=== PATIENT | male | born 1960 | race Caucasian/White ===

== ENCOUNTER → 2016-09-08 | Outpatient (REF) | payer BC ==
[~2016-09-08] MED LIST: BYST10TA2 PO; CIPR500T89 PO; CRES5TAB PO; FELO10TA PO; LOSA100T PO; PERC5TAB6 PO; PLENDIL PO
== END ==
LOC: M SFHCLERA 09:22
PROVIDERS: ATTEND Urology
DX: C61 Malignant neoplasm of prostate (principal)

== ENCOUNTER → 2016-12-17 | Outpatient (REF) | payer BC | LOC: M LABSMT 07:52 | PROVIDERS: ATTEND Nurse Practitioner Women's Health | DX: C61 Malignant neoplasm of prostate (principal) ==

== ENCOUNTER → 2017-06-24 | Outpatient (REF) | payer BC ==
[~2017-06-24] MED LIST changes: +CIPR-249 PO; -CIPR500T89 PO; +LABE20TAB PO; -LOSA100T PO; +LOSA100T8 PO; +PERC5TAB12 PO; -PERC5TAB6 PO; +VALS160T3 PO
== END ==
LOC: M SFHCLERA 11:23
PROVIDERS: ATTEND Urology
DX: C61 Malignant neoplasm of prostate (principal)

== ENCOUNTER → 2017-08-19 | Outpatient (REF) | payer BC ==
[2017-08-19 16:33] LABS: MEAN CORPUSCULAR HGB CONC 33.4 g/dl (32.0-36.5); MEAN CORPUSCULAR VOLUME 89.6 fl (80.0-96.0); PLATELET COUNT, AUTOMATED 309 10^3/uL (150-450); RED CELL DISTRIBUTION WIDTH 12.3 % (11.5-14.5); WHITE BLOOD COUNT 6.5 10^3/uL (4.0-10.0)
[2017-08-19 16:40] LABS: INR 1.02
[2017-08-19 17:24] LABS: ANION GAP 7 MEQ/L (8-16); BLOOD UREA NITROGEN 19 MG/DL (7-18); CALCIUM LEVEL 8.9 MG/DL (8.5-10.1); CARBON DIOXIDE LEVEL 30 MEQ/L (21-32); CHLORIDE LEVEL 102 MEQ/L (98-107); CREATININE FOR GFR 1.18 MG/DL (0.70-1.30); GLOMERULAR FILTRATION RATE > 60.0 (>56); GLUCOSE, FASTING 92 MG/DL (70-105); POTASSIUM SERUM 4.3 MEQ/L (3.5-5.1); SODIUM LEVEL 139 MEQ/L (136-145)
== END ==
LOC: M SFHCLERA 15:04
PROVIDERS: ATTEND Urology
DX: C61 Malignant neoplasm of prostate (principal); N52.01 Erectile dysfunction due to arterial insufficiency

== ENCOUNTER 2017-09-09 07:19 | Day surgery (SDC) | payer BC ==
[2017-09-09] MEDS ORDERED: LIDOCAINE 1% SDV 5 ML VIAL SQ (07:45)
[2017-09-09] MEDS: LR 1,000 ML IV ×2 (08:05→11:38)
[2017-09-09] MEDS: VANCOMYCIN HCL 1,000 MG, VIAL MATE ADAPTER 1 EACH in D5W 250 ML IV (08:08)
[2017-09-09] MEDS ORDERED: PROPOFOL 200 MG/20 ML VIAL As Ordered ×2 (08:37→09:45)
[2017-09-09] MEDS ORDERED: MIDAZOLAM INJ 2 MG/2 ML VIAL (J2250) As Ordered (08:37)
[2017-09-09] MEDS ORDERED: LIDOCAINE 2% INJ 100 MG/5 ML SDV (FOR ANES.) As Ordered (08:37)
[2017-09-09] MEDS ORDERED: fentaNYL 250 MCG/5 ML INJECTION (J3010) As Ordered (08:37)
[2017-09-09] MEDS ORDERED: BACTRIM 160MG/800MG DS TAB PO (09:00)
[2017-09-09] MEDS ORDERED: ROCURONIUM BROMIDE 50 MG/5 ML VIAL As Ordered (09:28)
[2017-09-09] MEDS ORDERED: SUCCINYLCHOLINE 100 MG/5 ML SYRINGE (J0330) As Ordered (09:28)
[2017-09-09] MEDS ORDERED: ePHEDrine SULFATE 25 MG/5 ML(5MG/ML) SYRINGE As Ordered (09:28)
[2017-09-09] MEDS ORDERED: dexameTHASONE 4 MG/ML 1ML VIAL (J1100) As Ordered (09:28)
[2017-09-09] MEDS: GENTAMICIN 100 MG in APPROPRIATE DILUENT 1 EA IV (09:30)
[2017-09-09] MEDS ORDERED: PHENYLephrine HCL 500 MCG/5 ML (100MCG/ML) SYRINGE (J2370) As Ordered (09:35)
[2017-09-09] MEDS ORDERED: NEOSTIGMINE 10 MG/10 ML VIAL (J2710) As Ordered (09:48)
[2017-09-09] MEDS ORDERED: GLYCOPYRROLATE INJ 0.2 MG/ML 2 ML VIAL As Ordered (09:48)
[2017-09-09] MEDS ORDERED: ONDANSETRON 4MG/2ML VIAL (J2405) As Ordered (09:48)
[2017-09-09] MEDS: BACTRIM IV 160MG-800MG/10ML VIAL (S0039) XX (10:32)
[2017-09-09] MEDS ORDERED: HYDROmorphone HCL 2 MG/ML 1ML VIAL (J1170) As Ordered (10:57)
[2017-09-09] MEDS ORDERED: KETOROLAC 60 MG/2 ML VIAL (J1885) As Ordered (11:13)
[2017-09-09] MEDS: BACITRACIN OINT 30GM As Ordered (11:20)
[2017-09-09] MEDS: PERCOCET 5MG/325MG TAB PO ×2 (11:50→14:10)
[2017-09-09] MEDS ORDERED: fentaNYL 100 MCG/2 ML INJECTION (J3010) IV (12:00)
[2017-09-09] MEDS ORDERED: ACETAMINOPHEN TAB 650MG DOSE (2X325MG) PO (12:00)
[2017-09-09] MEDS ORDERED: ONDANSETRON 4MG/2ML VIAL (J2405) IV (12:00)
[2017-09-09] MEDS ORDERED: PERCOCET 5MG/325MG TAB As Ordered (14:05)
== END 2017-09-09 17:35 | disposition home or self-care (01) ==
LOC: M SDC 07:19
DX: N52.31 Erectile dysfunction following radical prostatectomy (principal); I10 Essential (primary) hypertension; E78.00 Pure hypercholesterolemia, unspecified; C61 Malignant neoplasm of prostate; R06.83 Snoring; Z79.899 Other long term (current) drug therapy
CPT/HCPCS: 54405

== ENCOUNTER → 2018-02-09 | Outpatient (REF) | payer BC ==
[2018-02-10 14:16] LABS: PSA TOTAL <0.1 ng/mL (0.0-4.0)
== END ==
LOC: M LABSMT 07:31
DX: Z96.89 Presence of other specified functional implants (principal)
CPT/HCPCS: 84154

== ENCOUNTER → 2018-08-12 | Outpatient (REF) | payer BC ==
[2018-08-12 12:15] LABS: PROSTATIC SPECIFIC AG MONITOR < 0.0 NG/ML (< 4.0)
== END ==
LOC: M LABSMT 08:54
DX: Z85.46 Personal history of malignant neoplasm of prostate (principal)
CPT/HCPCS: 84153

== ENCOUNTER → 2019-02-14 | Outpatient (REF) | payer BC ==
[~2019-02-14] MED LIST changes: +BACT800T5 PO; +HYDR-3910 PO; +TYLE650T35 PO; +VALS320T3 PO
== END ==
LOC: M LABSMT 08:49
PROVIDERS: ATTEND Nurse Practitioner Women's Health
DX: Z85.46 Personal history of malignant neoplasm of prostate (principal)

== ENCOUNTER → 2019-08-08 | Outpatient (REF) | payer BC ==
[~2019-08-08] MED LIST changes: -FELO10TA PO; +FELO10TA28 PO
== END ==
LOC: M LABSMT 15:05
PROVIDERS: ATTEND Nurse Practitioner Women's Health
DX: Z85.46 Personal history of malignant neoplasm of prostate (principal)

== ENCOUNTER → 2020-02-13 | Outpatient (REF) | payer BC ==
[~2020-02-13] MED LIST changes: +ACET650T61 PO; -TYLE650T35 PO
== END ==
LOC: M SFHCLERA 15:38
PROVIDERS: ATTEND Nurse Practitioner Women's Health
DX: Z85.46 Personal history of malignant neoplasm of prostate (principal)

== ENCOUNTER 2020-05-29 06:25 | Emergency (ER) | payer OTHER, BC ==
[~2020-05-29] VITALS: Ht 172.7 cm; Wt 86.7 kg
--- NOTE | 2020-05-29 07:47 | REPVR ---
PROCEDURE INFORMATION: Exam: XR Left Shoulder Exam date and time: 05/29/2020 7:00 AM Age: 59 years old Clinical indication: Injury or trauma; Fall; Sprain or strain; Shoulder; Left; Additional info: L shoulder injury S/P fall TECHNIQUE: Imaging protocol: XR Left shoulder. Views: 2 or more views. COMPARISON: No relevant prior studies available. FINDINGS: Bones/joints: No acute fracture or dislocation is identified. Soft tissues: The soft tissues appear grossly unremarkable. IMPRESSION: No acute fracture or dislocation identified. Electronically signed by: Ronan Herman On 05/29/2020 07:46:50 AM
[2020-05-29 08:12] VITALS: BP 131/77
== END 2020-05-29 08:21 | disposition home or self-care (01) ==
LOC: M ED 06:25
DX: S43.402A Unspecified sprain of left shoulder joint, initial encounter (principal); S40.012A Contusion of left shoulder, initial encounter; W19.XXXA Unspecified fall, initial encounter; Y92.89 Other specified places as the place of occurrence of the external cause; Y93.89 Activity, other specified; Y99.0 Civilian activity done for income or pay; I10 Essential (primary) hypertension; E78.5 Hyperlipidemia, unspecified; F41.9 Anxiety disorder, unspecified; Z85.46 Personal history of malignant neoplasm of prostate; Z79.899 Other long term (current) drug therapy

== ENCOUNTER → 2021-02-12 | Outpatient (REF) | payer OTHER, BC | LOC: M SMT 11:08 → M WUC 11:08 | PROVIDERS: ATTEND Nurse Practitioner Women's Health | DX: Z85.46 Personal history of malignant neoplasm of prostate (principal) ==

== ENCOUNTER → 2022-03-14 | Outpatient (CLI) | payer BC | LOC: M WUC 09:39 | PROVIDERS: ATTEND Nurse Practitioner Women's Health | DX: Z85.46 Personal history of malignant neoplasm of prostate (principal) ==

== ENCOUNTER → 2023-03-13 | Outpatient (CLI) | payer BC | LOC: M WUC 08:42 | PROVIDERS: ATTEND Physician Assistant | DX: Z85.46 Personal history of malignant neoplasm of prostate (principal) ==

== ENCOUNTER → 2024-03-15 | Outpatient (REF) | payer BC ==
[~2024-03-15] MED LIST changes: -HYDR-3910 PO; +HYDR25TA87 PO
== END ==
LOC: M LABWUC 13:32
PROVIDERS: ATTEND Physician Assistant
DX: Z85.46 Personal history of malignant neoplasm of prostate (principal)

== ENCOUNTER → 2025-03-07 | Outpatient (CLI) | payer BC ==
[~2025-03-07] MED LIST changes: -BYST10TA2 PO; +BYST1TAB3 PO
== END ==
LOC: M WUC 13:46
PROVIDERS: ATTEND Physician Assistant
DX: Z85.46 Personal history of malignant neoplasm of prostate (principal)